=== PATIENT | male | born 1930 | race African-American/Black ===

== ENCOUNTER 2016-07-23 22:09 | Emergency (ER) | payer MEDICARE, MEDICAID ==
[2016-07-24 02:30] LABS: ABSOLUTE EOSINOPHILS # (AUTO) 0.1 10^3/uL (0.0-0.6); ABSOLUTE LYMPHOCYTES (AUTO) 0.8 10^3/uL (0.5-4.7); ABSOLUTE MONOCYTES (AUTO) 0.4 10^3/uL (0.1-1.4); ABSOLUTE NEUT (AUTO) 4.3 10^3/uL (1.7-8.2); BASOPHILS % (AUTO) 0.4 % (0-2); EOSINOPHILS % (AUTO) 1.5 % (0-6); HEMATOCRIT 37.8 % (37.9-51.0); HEMOGLOBIN 12.4 g/dL (13.5-17.0); HGB HCT DIFFERENCE -0.6; LYMPHOCYTES % (AUTO) 14.5 % (13-45); MEAN CORPUSCULAR HGB CONC 32.8 g/dL (32.0-36.0); MEAN CORPUSCULAR VOLUME 85 fl (80-97); MONOCYTES % (AUTO) 7.6 % (3-13); RED BLOOD COUNT 4.43 10^6/uL (4.35-5.55); RED CELL DISTRIBUTION WIDTH 17.1 % (11.5-14.0); WHITE BLOOD COUNT 5.7 10^3/uL (4.0-10.5)
[2016-07-24 02:31] LABS: ALANINE AMINOTRANSFERASE 19 U/L (21-72); ALBUMIN 4.1 g/dL (3.5-5.0); ALKALINE PHOSPHATASE 127 U/L (38-126); ANION GAP 13 (5-19); ASPARTATE AMINO TRANSFERASE 25 U/L (17-59); BILIRUBIN,DIRECT 0.5 mg/dL (0.0-0.4); BILIRUBIN,TOTAL 0.7 mg/dL (0.2-1.3); BLOOD UREA NITROGEN 20 mg/dL (7-20); CALCIUM 9.6 mg/dL (8.4-10.2); CARBON DIOXIDE 30 mmol/L (22-30); CHLORIDE 102 mmol/L (98-107); CREATINE KINASE 102 U/L (55-170); CREATININE RESULT 1.25 mg/dL (0.52-1.25); GLUCOSE 96 mg/dL (75-110); MAGNESIUM 2.4 mg/dL (1.6-2.3); POTASSIUM 4.4 mmol/L (3.6-5.0); SODIUM 144.9 mmol/L (137-145); TOTAL PROTEIN 7.9 g/dL (6.3-8.2)
[2016-07-24 02:33] LABS: PROTHROMBIN TIME 14.5 SEC (11.4-15.4)
[2016-07-24 02:34] LABS: PARTIAL THROMBOPLASTIN TIME 34.5 SEC (23.5-35.8)
[2016-07-24 02:36] LABS: ALCOHOL < 10 mg/dL (NONE DETECTED)
[2016-07-24 02:42] LABS: CREATINE KINASE MB 1.96 ng/mL (<4.55); TROPONIN I 0.013 ng/mL
--- NOTE | 2016-07-24 02:44 | ER Document Report ---
ED General <ALBIN STAPLETON - Last Filed: 07/24/16 09:44> - General Information source: Patient, Emergency Med Personnel Cannot obtain history due to: Dementia TRAVEL OUTSIDE OF THE [place]. IN LAST 30 DAYS: No <CRISTEL CARVALHO - Last Filed: 07/24/16 14:30> - General Chief Complaint: Altered Mental Status Stated Complaint: NO COMPLAINTS Notes: This is an 85-year-old male with a history of dementia who reportedly does still live alone and he was brought by EMS tonight after he was found wandering in his neighbor's yard. Patient has no specific complaints tonight, but is a very poor historian, confused to date, and difficult to understand as he mumbles all his words. (CRISTEL CARVALHO) - Related Data Allergies/Adverse Reactions: No Known Allergies Allergy (Verified 03/02/16 11:34) Past Medical History - Social History Smoking Status: Current Every Day Smoker Family History: None - Past Medical History Cardiac Medical History: Reports: Hx Hypertension Neurological Medical History: Reports: Hx Seizures Renal/ Medical History: Denies: Hx Peritoneal Dialysis Musculoskeltal Medical History: Reports Hx Arthritis Psychiatric Medical History: Reports: Hx Dementia - Immunizations Immunizations up to date: Yes Hx Diphtheria, Pertussis, Tetanus Vaccination: Yes <CRISTEL CARVALHO - Last Filed: 07/24/16 14:30> Review of Systems - Review of Systems -: Yes ROS unobtainable due to patient's medical condition - secondary to dementia <CRISTEL CARVALHO - Last Filed: 07/24/16 14:30> Physical Exam <ALBIN STAPLETON - Last Filed: 07/24/16 09:44> <CRISTEL CARVALHO - Last Filed: 07/24/16 14:30> - Vital signs Vitals: Temp Pulse BP Pulse Ox 97.4 F 67 122/76 95 07/23/16 22:24 07/23/16 22:24 07/23/16 22:24 07/23/16 22:24 - Notes Notes: PHYSICAL EXAMINATION: GENERAL: frail elderly male, disheveled, smells of urine. Pleasant and conversant (mumbles) and in no acute distress, confused. HEAD: Atraumatic, normocephalic. EYES: Pupils equal round and reactive to light, extraocular movements intact, sclera anicteric, conjunctiva are normal. ENT: nares patent, oropharynx clear without exudates. Moist mucous membranes. NECK: Normal range of motion, supple without lymphadenopathy LUNGS: Breath sounds clear to auscultation bilaterally and equal. No wheezes rales or rhonchi. HEART: Regular rate and rhythm without murmurs ABDOMEN: Soft, nontender, normoactive bowel sounds. No guarding, no rebound. No masses appreciated. EXTREMITIES: Normal range of motion NEUROLOGICAL: Alert to person. Cranial nerves grossly intact. No gross focal motor or sensory deficits appreciated PSYCH: Normal mood, normal affect. SKIN: Warm, Dry, normal turgor, no rashes or lesions noted. (CRISTEL CARVALHO) Course - Laboratory Result Diagrams: 07/24/16 01:05 07/24/16 01:05 <ALBIN STAPLETON - Last Filed: 07/24/16 09:44> - Laboratory Result Diagrams: 07/24/16 01:05 07/24/16 01:05 - Diagnostic Test Radiology reviewed: Reports reviewed - CT head: no acute changes CXR: no acute cardiopulmonary process <CRISTEL CARVALHO - Last Filed: 07/24/16 14:30> - Re-evaluation Re-evalutation: 07/24/16 06:10 I was able to contact the emergency contacts for this patient, his sister Odalis Malik [phone]. She confirms that she is his medical POA and that he lives with his stepson. She will come to the ER to provide further information/ assistance roxana. Pt has become increasingly more confused and somewhat agitated. Will medicate with Ativan. director field services consult has been placed, and I am awaiting family arrival to discuss discharge needs/plan, as patient will be unable to go home by himself in this condition. (CRISTEL CARVALHO) - Vital Signs Vital signs: Temp Pulse Resp BP Pulse Ox 97.9 F 67 23 H 193/83 H 100 07/24/16 11:24 07/23/16 22:24 07/24/16 11:01 07/24/16 11:01 07/24/16 11:01 - Laboratory Laboratory results interpreted by me: 07/24/16 07/24/16 07/24/16 01:05 01:05 08:35 Hgb 12.4 L Hct 37.8 L RDW 17.1 H Plt Count 145 L Est GFR (Non-Af Amer) 55 L Magnesium 2.4 H Direct Bilirubin 0.5 H ALT 19 L Alkaline Phosphatase 127 H Urine Blood MODERATE H Discharge <ALBIN STAPLETON - Last Filed: 07/24/16 09:44> <CRISTEL CARVALHO - Last Filed: 07/24/16 14:30> - Discharge Clinical Impression: Dementia Qualifiers: Dementia type: unspecified type Dementia behavioral disturbance: with behavioral disturbance Qualified Code(s): F03.91 - Unspecified dementia with behavioral disturbance Condition: Stable Disposition: HOME, SELF-CARE Additional Instructions: Follow-up with your doctor to discuss long-term care options. RETURN TO THE EMERGENCY ROOM IF ANY NEW OR WORSENING SYMPTOMS. Referrals: VAISHALI TRINH MD [Primary Care Provider] - Follow up in 3-5 days
[2016-07-24] MEDS ORDERED: LORAZEPAM INJ 2 MG/1 ML VIAL IV ONE (06:08)
--- NOTE | 2016-07-24 08:07 | EKG REPORT ---
SEVERITY:- ABNORMAL ECG - ACCELERATED JUNCTIONAL ESCAPE RHYTHM RIGHT BUNDLE BRANCH BLOCK LVH BY VOLTAGE : Confirmed by: Jerrell Blanco MD 24-Jul-2016 08:07:27
[2016-07-24 09:15] LABS: APPEARANCE,URINE CLEAR; BILIRUBIN,URINE NEGATIVE (NEGATIVE); GLUCOSE, URINE NEGATIVE (NEGATIVE); KETONES,URINE NEGATIVE (NEGATIVE); LEUKOCYTE ESTERASE,URINE NEGATIVE (NEGATIVE); NITRITE,URINE NEGATIVE (NEGATIVE); PROTEIN,URINE NEGATIVE (NEGATIVE); URINE SPECIFIC GRAVITY 1.005; UROBILINOGEN,URINE NEGATIVE mg/dL (<2.0)
[2016-07-24 11:23] VITALS: BP 193/83
== END 2016-07-24 11:24 | disposition home or self-care (01) ==
LOC: ER 22:09
DX: F03.91 Unspecified dementia, unspecified severity, with behavioral disturbance (principal); R41.82 Altered mental status, unspecified; F17.200 Nicotine dependence, unspecified, uncomplicated; I10 Essential (primary) hypertension
CPT/HCPCS: 93005; 99285; 96374; 36415; 82553; 80307; 82550; 83735; 85025; 85610; 85730; 80053; 81001; 84484; 71010; 70450; 93010; J2060

== ENCOUNTER 2016-11-24 12:41 | Emergency (ER) | payer MEDICARE, MEDICAID ==
--- NOTE | 2016-11-24 12:56 | ER Document Report ---
ED GI/ - General Stated Complaint: ABDOMINAL PAIN Time Seen by Provider: 11/24/16 12:55 Mode of Arrival: Medic Information source: Patient, Emergency Med Personnel TRAVEL OUTSIDE OF THE [place] IN LAST 30 DAYS: No - HPI Patient complains to provider of: Abdominal pain Onset: Yesterday Timing/Duration: Gradual Quality of pain: Dull Severity at maximum: Moderate Severity in ED: Mild, Moderate Context: denies: Bad food, Lifting, Recent trauma Location: Chest pain - LEFT PECTORAL, Epigastric Associated symptoms: Constipation - NO BM IN 2 DAYS, Nausea. denies: Chills, Fever, Hurts to breath, Shortness of breath Exacerbated by: Food Relieved by: Denies Similar symptoms previously: No Recently seen / treated by doctor: No - Related Data Allergies/Adverse Reactions: No Known Allergies Allergy (Verified 03/02/16 11:34) Past Medical History - General Information source: Patient, Relative - Social History Smoking Status: Unknown if Ever Smoked Frequency of alcohol use: None Drug Abuse: None Family History: None Patient has suicidal ideation: No Patient has homicidal ideation: No - Past Medical History Cardiac Medical History: Reports: Hx Hypertension Pulmonary Medical History: Reports: None Neurological Medical History: Reports: Hx Seizures Renal/ Medical History: Reports: None. Denies: Hx Peritoneal Dialysis Malignancy Medical History: Reports None GI Medical History: Reports: None Musculoskeltal Medical History: Reports Hx Arthritis Psychiatric Medical History: Reports: Hx Dementia Surgical Hx: Negative - Immunizations Immunizations up to date: Yes Hx Diphtheria, Pertussis, Tetanus Vaccination: Yes Review of Systems - Review of Systems Constitutional: No symptoms reported. denies: Chills, Fever EENT: No symptoms reported Cardiovascular: No symptoms reported Respiratory: No symptoms reported Gastrointestinal: See HPI Genitourinary: No symptoms reported Musculoskeletal: No symptoms reported Skin: No symptoms reported Neurological/Psychological: No symptoms reported Physical Exam - Vital signs Vitals: Resp 24 H 11/24/16 12:58 Interpretation: Hypertensive, Tachypneic. No: Tachycardic, Febrile - General General appearance: Appears well, Alert In distress: None - HEENT Head: Normocephalic Eyes: Normal Conjunctiva: Normal Ears: Normal Nasal: Normal Mouth/Lips: Normal Mucous membranes: Normal Pharynx: Normal Neck: Normal - Respiratory Respiratory status: No respiratory distress Breath sounds: Normal - Cardiovascular Rhythm: Regular Heart sounds: Normal auscultation Murmur: No - Abdominal Inspection: Normal Distension: No distension Bowel sounds: Normal Tenderness: Tender - SLIGHT, ALL QUADRANTS - Rectal Tenderness: No Stool: Other - EMPTY RECTAL VAULT - Back Back: Normal - Extremities General upper extremity: Normal inspection General lower extremity: Normal inspection - Neurological Neuro grossly intact: Yes Cognition: Normal Orientation: AAOx4 - Psychological Associated symptoms: Normal affect, Normal mood - Skin Skin Temperature: Warm Skin Moisture: Dry Skin Color: Normal Skin Turgor: Elastic Course - Vital Signs Vital signs: Temp Pulse Resp BP Pulse Ox 97.4 F 80 18 184/92 H 98 11/24/16 13:28 11/24/16 15:05 11/24/16 14:48 11/24/16 14:48 11/24/16 14:47 - Laboratory Result Diagrams: 11/24/16 13:14 11/24/16 13:14 Laboratory results interpreted by me: 11/24/16 11/24/16 11/24/16 13:14 13:14 15:54 Hgb 12.5 L Hct 37.7 L RDW 15.7 H Plt Count 129 L BUN 25 H Est GFR (Non-Af Amer) 59 L ALT 18 L Lipase 18.5 L Urine Protein 100 H Urine Blood LARGE H - EKG Interpretation by Me EKG shows normal: [place], Intervals, ST-T Waves. abnormal: Sinus rhythm, QRS Complexes Rate: Normal Rhythm: A.Fib Holl[place]/QRS: RBBB When compared to previous EKG there are: Changes noted Discharge - Discharge Clinical Impression: Abdominal pain Qualifiers: Abdominal location: generalized Qualified Code(s): R10.84 - Generalized abdominal pain Condition: Stable Disposition: HOME, SELF-CARE Instructions: Abdominal Pain ([facility]), Laxative ([facility]) Additional Instructions: DRINK PLENTY OF FLUIDS. TALE MIRALAX DIRECTED, TWICE A DAY UNTIL REGULAR BOWEL MOVEMENTS BEGIN, THEN NEEDED TO KEEP BOWELS REGULAR. CONTINUE ALL OTHER MEDS USUAL. FOLLOW UP WITH YOUR PRIMARY CARE PROVIDER NEEDED. Prescriptions: Polyethylene Glycol 3350 [Miralax] 17 gm PO BIDP PRN #[id number] PRN Reason: FOR CONSTIPATION Referrals: VAISHALI TRINH MD [Primary Care Provider] - Follow up as needed
[2016-11-24 13:41] LABS: ABSOLUTE EOSINOPHILS # (AUTO) 0.1 10^3/uL (0.0-0.6); ABSOLUTE LYMPHOCYTES (AUTO) 0.9 10^3/uL (0.5-4.7); ABSOLUTE MONOCYTES (AUTO) 0.3 10^3/uL (0.1-1.4); ABSOLUTE NEUT (AUTO) 3.4 10^3/uL (1.7-8.2); BASOPHILS % (AUTO) 0.5 % (0-2); EOSINOPHILS % (AUTO) 2.6 % (0-6); HEMATOCRIT 37.7 % (37.9-51.0); HEMOGLOBIN 12.5 g/dL (13.5-17.0); HGB HCT DIFFERENCE -0.2; LYMPHOCYTES % (AUTO) 18.6 % (13-45); MEAN CORPUSCULAR HEMOGLOBIN 28.2 pg (27.0-33.4); MEAN CORPUSCULAR VOLUME 85 fl (80-97); RED BLOOD COUNT 4.42 10^6/uL (4.35-5.55); RED CELL DISTRIBUTION WIDTH 15.7 % (11.5-14.0); SEGMENTED NEUTROPHILS % (AUTO) 71.3 % (42-78); WHITE BLOOD COUNT 4.7 10^3/uL (4.0-10.5)
[2016-11-24 13:51] LABS: ALANINE AMINOTRANSFERASE 18 U/L (21-72); ALBUMIN 3.9 g/dL (3.5-5.0); ALKALINE PHOSPHATASE 105 U/L (38-126); ANION GAP 10 (5-19); ASPARTATE AMINO TRANSFERASE 23 U/L (17-59); BILIRUBIN,DIRECT 0.4 mg/dL (0.0-0.4); BILIRUBIN,TOTAL 0.4 mg/dL (0.2-1.3); BLOOD UREA NITROGEN 25 mg/dL (7-20); CALCIUM 9.1 mg/dL (8.4-10.2); CARBON DIOXIDE 29 mmol/L (22-30); CHLORIDE 104 mmol/L (98-107); CREATINE KINASE 66 U/L (55-170); CREATININE RESULT 1.18 mg/dL (0.52-1.25); GLUCOSE 88 mg/dL (75-110); LIPASE 18.5 U/L (23-300); MAGNESIUM 2.3 mg/dL (1.6-2.3); POTASSIUM 4.2 mmol/L (3.6-5.0); TOTAL PROTEIN 7.3 g/dL (6.3-8.2)
[2016-11-24 14:01] LABS: CREATINE KINASE MB 1.68 ng/mL (<4.55)
[2016-11-24 14:02] LABS: TROPONIN I < 0.012 ng/mL
--- NOTE | 2016-11-24 14:19 | RADIOLOGY REPORT (SQ) ---
EXAM DESCRIPTION: ACUTE ABDOMEN SERIES COMPLETED DATE/TIME: 11/24/2016 2:00 pm REASON FOR STUDY: EPIGASTRIC PAIN COMPARISON: 05/22/2015. NUMBER OF VIEWS: Three views. TECHNIQUE: Frontal chest, supine abdomen and upright/decubitus abdomen radiographic images acquired. LIMITATIONS: None. FINDINGS: CHEST: Probable chronic interstitial scarring. No focal infiltrate. FREE AIR: None. No abnormal gas collections. BOWEL GAS PATTERN: Nonobstructive pattern. No dilated loops or air fluid levels. CALCIFICATIONS: No suspicious calcifications. Extensive vascular calcifications. HARDWARE: None in the abdomen. SOFT TISSUES: No gross mass or suggestion of organomegaly. BONES: No acute fracture. Degenerative changes in the spine and hips. No worrisome bone lesions. OTHER: No other significant finding. IMPRESSION: NO RADIOGRAPHIC EVIDENCE FOR ACUTE ABDOMINAL DISEASE. CHRONIC FINDINGS DESCRIBED KIM MILLER. TECHNICAL DOCUMENTATION: JOB ID: [id number] [employer]- All Rights Reserved
[2016-11-24] MEDS ORDERED: NA PHOS,M-B/NA PHOS,DI-BA (ADULT) 133 ML ENEMA PR ONE (16:21)
[2016-11-24 16:24] LABS: APPEARANCE,URINE CLEAR; BILIRUBIN,URINE NEGATIVE (NEGATIVE); GLUCOSE, URINE NEGATIVE (NEGATIVE); KETONES,URINE NEGATIVE (NEGATIVE); LEUKOCYTE ESTERASE,URINE NEGATIVE (NEGATIVE); NITRITE,URINE NEGATIVE (NEGATIVE); PROTEIN,URINE 100 mg/dL (NEGATIVE); URINE SPECIFIC GRAVITY 1.011; UROBILINOGEN,URINE NEGATIVE mg/dL (<2.0)
[2016-11-24] MEDS ORDERED: POLYETHYLENE GLYCOL 3350 POWDER 17 GM/1 PACKET PO ONE (17:12)
[2016-11-24 18:32] VITALS: BP 147/89
--- NOTE | 2016-11-24 21:56 | EKG REPORT ---
SEVERITY:- ABNORMAL ECG - ATRIAL FIBRILLATION RIGHT BUNDLE BRANCH BLOCK : Confirmed by: Patrick Rodrigues 24-Nov-2016 21:55:16
== END 2016-11-24 18:31 | disposition home or self-care (01) ==
LOC: ER 12:41
DX: K59.00 Constipation, unspecified (principal); R10.84 Generalized abdominal pain; R11.0 Nausea; I48.91 Unspecified atrial fibrillation; I45.10 Unspecified right bundle-branch block; I10 Essential (primary) hypertension; R06.82 Tachypnea, not elsewhere classified
CPT/HCPCS: 93005; 99285; 36415; 82553; 82550; 83690; 83735; 85025; 80053; 81001; 84484; 74022; 93010; J3490; A9270

== ENCOUNTER 2016-12-08 21:01 | Emergency (ER) | payer MEDICARE, MEDICAID ==
--- NOTE | 2016-12-08 23:13 | ER Document Report ---
ED General - General Chief Complaint: Fall Stated Complaint: FALL/ NO COMPLAINT Time Seen by Provider: 12/08/16 21:56 Cannot obtain history due to: Dementia Notes: Patient is an 86-year-old male who presents by EMS after being found on the ground by his son. Patient apparently lives with his son but was on the ground for an unknown period of time. Patient is profoundly demented and unable to provide any additional meaningful history. He does deny any pain or additional complaints. TRAVEL OUTSIDE OF THE [place] IN LAST 30 DAYS: No - Related Data Allergies/Adverse Reactions: No Known Allergies Allergy (Verified 03/02/16 11:34) Past Medical History - General Information source: Patient, Emergency Med Personnel Cannot obtain history due to: Dementia - Social History Smoking Status: Unknown if Ever Smoked Lives with: Family Family History: Reviewed & Not Pertinent Patient has suicidal ideation: No Patient has homicidal ideation: No - Past Medical History Cardiac Medical History: Reports: Hx Hypertension Neurological Medical History: Reports: Hx Seizures Renal/ Medical History: Denies: Hx Peritoneal Dialysis Musculoskeltal Medical History: Reports Hx Arthritis Psychiatric Medical History: Reports: Hx Dementia - Immunizations Immunizations up to date: Yes Hx Diphtheria, Pertussis, Tetanus Vaccination: Yes Review of Systems - Review of Systems Notes: Constitutional: Negative for fever. HENT: Negative for sore throat. Eyes: Negative for visual changes. Cardiovascular: Negative for chest pain. Respiratory: Negative for shortness of breath. Gastrointestinal: Negative for abdominal pain, vomiting or diarrhea. Genitourinary: Negative for dysuria. Musculoskeletal: Negative for back pain. Skin: Negative for rash. Neurological: Negative for headaches, weakness or numbness. 10 point ROS negative except as marked above and in HPI. Physical Exam - Vital signs Vitals: Temp Pulse Resp BP Pulse Ox 98.6 F 79 18 139/84 H 95 12/08/16 21:21 12/08/16 21:21 12/08/16 21:21 12/08/16 21:21 12/08/16 21:21 Interpretation: Normal Notes: PHYSICAL EXAMINATION: GENERAL: Frail, emaciated, but in no acute distress HEAD: Atraumatic, normocephalic. EYES: Pupils equal round and reactive to light, extraocular movements intact, sclera anicteric, conjunctiva are normal. ENT: nares patent, oropharynx clear without exudates. Moderately dry mucous membranes. NECK: Normal range of motion, supple without lymphadenopathy LUNGS: Breath sounds clear to auscultation bilaterally and equal. No wheezes rales or rhonchi. HEART: Regular rate and rhythm without murmurs ABDOMEN: Soft, nontender, normoactive bowel sounds. No guarding, no rebound. No masses appreciated. EXTREMITIES: Normal range of motion, no pitting or edema. No cyanosis. NEUROLOGICAL: No focal neurological deficits. Moves all extremities spontaneously and on command. PSYCH: Alert, oriented only to person SKIN: Warm, Dry, normal turgor, no rashes or lesions noted. Course - Re-evaluation Re-evalutation: 12/08/16 23:12 Patient is an elderly demented 86-year-old male who presents after apparently being found on the floor. He was therefore an unknown period of time. He denies any complaints to me. He is profoundly confused, believes it is 1942, unable to describe any current events. No family at the bedside. He has no evidence of trauma on exam. No pain in the hips, no evidence of any extremity injury. He has no evidence of trauma over the head or neck. Breath sounds clear bilaterally. No abdominal tenderness. No focal weakness or numbness. He does appear somewhat dehydrated. Will obtain basic laboratories to evaluate for acute rhabdomyolysis as the patient was on the ground for an unknown period of time. If this is unremarkable plan for discharge home. 12/09/16 00:32 Laboratories unremarkable. Patient remains a some somatic. Continues to deny any complaints. Will discharge with return precautions and follow-up recommendations. - Vital Signs Vital signs: Temp Pulse Resp BP Pulse Ox 98.6 F 79 18 139/84 H 95 12/08/16 21:21 12/08/16 21:21 12/08/16 21:21 12/08/16 21:21 12/08/16 21:21 - Laboratory Result Diagrams: 12/08/16 23:45 Laboratory results interpreted by me: 12/08/16 23:45 Potassium 5.4 H BUN 29 H Creatinine 1.33 H Est GFR (Non-Af Amer) 51 L Creatine Kinase 54 L Discharge - Discharge Clinical Impression: Dementia Qualifiers: Dementia type: unspecified type Dementia behavioral disturbance: without behavioral disturbance Qualified Code(s): F03.90 - Unspecified dementia without behavioral disturbance Fall Qualifiers: Encounter type: initial encounter Qualified Code(s): W19.XXXA - Unspecified fall, initial encounter Condition: Stable Disposition: HOME, SELF-CARE Additional Instructions: Please return to the emergency room immediately if you experience any concerning symptoms including high fevers, severe headache, chest pain, difficulty breathing, abdominal pain, slurred speech, numbness or weakness in your arms or legs, or any other symptom that concerns you. Referrals: VAISHALI TRINH MD [Primary Care Provider] - Follow up as needed
[2016-12-09 00:15] LABS: ANION GAP 5 (5-19); BLOOD UREA NITROGEN 29 mg/dL (7-20); CALCIUM 9.1 mg/dL (8.4-10.2); CARBON DIOXIDE 30 mmol/L (22-30); CHLORIDE 106 mmol/L (98-107); CREATINE KINASE 54 U/L (55-170); CREATININE RESULT 1.33 mg/dL (0.52-1.25); GLUCOSE 101 mg/dL (75-110); POTASSIUM 5.4 mmol/L (3.6-5.0); SODIUM 141.4 mmol/L (137-145)
--- NOTE | 2016-12-09 11:59 | RADIOLOGY REPORT (SQ) ---
EXAM DESCRIPTION: CHEST PA/LAT COMPLETED DATE/TIME: 12/09/2016 11:51 am REASON FOR STUDY: asymptomatic , hypoxemia COMPARISON: 02/23/2016. EXAM PARAMETERS: NUMBER OF VIEWS: two views TECHNIQUE: Digital Frontal and Lateral radiographic views of the chest acquired. RADIATION DOSE: NA LIMITATIONS: none FINDINGS: LUNGS AND PLEURA: Chronic interstitial changes. No focal infiltrates, masses or pneumotho rax. No pleural effusion. MEDIASTINUM AND HILAR STRUCTURES: No masses or contour abnormalities. HEART AND VASCULAR STRUCTURES: Heart normal size. No evidence for failure. Ectatic aorta. BONES: No acute findings. HARDWARE: None in the chest. OTHER: No other significant finding. IMPRESSION: STABLE CHRONIC CHANGES. NO ACUTE RADIOGRAPHIC FINDING IN THE CHEST. TECHNICAL DOCUMENTATION: JOB ID: [id number] [employer]- All Rights Reserved
[2016-12-09 12:21] VITALS: BP 156/75
== END 2016-12-09 11:45 | disposition home or self-care (01) ==
LOC: ER 21:01
DX: F03.90 Unspecified dementia, unspecified severity, without behavioral disturbance, psychotic disturbance, mood disturbance, and anxiety (principal); W19.XXXA Unspecified fall, initial encounter
CPT/HCPCS: 36415; 71020; 80048; 82550; 99285

== ENCOUNTER 2016-12-24 04:47 | Emergency (ER) | payer MEDICARE, MEDICAID ==
--- NOTE | 2016-12-24 05:02 | ER Document Report ---
ED Fall - General TRAVEL OUTSIDE OF THE [place] IN LAST 30 DAYS: No <DENISE ROGERS - Last Filed: 12/24/16 07:18> <JIGNESH TORRES - Last Filed: 12/24/16 09:24> <CELE COLMENARES - Last Filed: 12/24/16 10:20> - General Stated Complaint: FALL, RIGHT HIP PAIN Time Seen by Provider: 12/24/16 04:49 Notes: Patient is a 86-year-old male presents emergency department via EMS after a fall in his home. Per EMS patient lives with his stepson who is uninsured when he fell but he found him laying on the ground on his side of the house. Patient denies any loss of consciousness or head injury. States he slipped out of his walker. Admits to right hip pain. EMS reports internal rotation and like shortening of the right lower extremity. Distal pulses are present. Otherwise patient has a history of hypertension. (DENISE ROGERS) - Related data Allergies/Adverse Reactions: No Known Allergies Allergy (Verified 12/24/16 09:00) Past Medical History - Social History Family History: Reviewed & Not Pertinent - Past Medical History Cardiac Medical History: Reports: Hx Hypertension Neurological Medical History: Reports: Hx Seizures Renal/ Medical History: Denies: Hx Peritoneal Dialysis Musculoskeltal Medical History: Reports Hx Arthritis Psychiatric Medical History: Reports: Hx Dementia - Immunizations Immunizations up to date: Yes Hx Diphtheria, Pertussis, Tetanus Vaccination: Yes <DENISE ROGERS - Last Filed: 12/24/16 07:18> - Social History Smoking Status: Never Smoker Cigarette use (# per day): No Chew tobacco use (# tins/day): No Smoking Education Provided: No <CELE COLMENARES - Last Filed: 12/24/16 10:20> Review of Systems - Review of Systems Constitutional: No symptoms reported Musculoskeletal: See HPI Neurological/Psychological: No symptoms reported -: Yes All other systems reviewed and negative <DENISE ROGERS - Last Filed: 12/24/16 07:18> Physical Exam <DENISE ROGERS - Last Filed: 12/24/16 07:18> <JIGNESH TORRES - Last Filed: 12/24/16 09:24> <CELE COLMENARES - Last Filed: 12/24/16 10:20> - Vital signs Vitals: Resp 17 12/24/16 05:01 - Notes Notes: PHYSICAL EXAMINATION: GENERAL: Well-appearing, well-nourished and in no acute distress. Right lower extremity shortened with internal GCS 15 HEAD: Atraumatic, normocephalic. EYES: Pupils equal round and reactive to light, extraocular movements intact, sclera anicteric, conjunctiva are normal. ENT: Nares patent, oropharynx clear without exudates. Moist mucous membranes. No hemanotympanum . No blood in nares. No dental fracture NECK: Normal range of motion, supple without lymphadenopathy. Trachea midline LUNGS: Breath sounds clear to auscultation bilaterally and equal. No wheezes rales or rhonchi. HEART: Regular rate and rhythm without murmurs. Pulses intact all throughout. ABDOMEN: Soft, nontender, nondistended abdomen. No guarding, no rebound. No masses appreciated. Musculoskeletal: Rotation with swelling of the right groin and tenderness to palpation of the right hip and pelvis, no pitting or edema. No cyanosis. Hip non tender, stable. NEUROLOGICAL: Cranial nerves grossly intact. Normal speech, normal gait. Normal sensory, motor, and reflex exams. PSYCH: Normal mood, normal affect. SKIN: Warm, No active bleeding U/S fast exam notes no obvious free fluid but this is a nondiagnostic evaluation (DENISE ROGERS) Course - Laboratory Result Diagrams: 12/24/16 06:26 12/24/16 06:26 <DENISE ROGERS - Last Filed: 12/24/16 07:18> - Laboratory Result Diagrams: 12/24/16 06:26 12/24/16 06:26 <JIGNESH TORRES - Last Filed: 12/24/16 09:24> - Laboratory Result Diagrams: 12/24/16 06:26 12/24/16 06:26 <CELE COLMENARES - Last Filed: 12/24/16 10:20> - Re-evaluation Re-evalutation: 12/24/16 04:45 Patient is an 86-year-old male hemodynamic stable, no acute distress and afebrile. Presentation is concerning for a right hip fracture. 12/24/16 06:00 No evidence of intracranial hemorrhage or fracture noted on CT of the head. No evidence of cervical fracture. Evidence of a right intertrochanteric fracture of the right hip. Otherwise mild anemia noted not requiring transfusion at this time. Evidence of chronic kidney disease that is stable with previous evaluation at the beginning of November. No evidence of urinary tract infection. 12/24/16 07:19 Patient has been signed out to day physician psychiatric technician assistant Jignesh Torres who will continue care of this patient. I have also consulted supervising physician Dr. Cele Colmenares regarding the care of this patient. Patient to either be admitted but we do not have Ortho continuity clerk today. Patient has been kept n.p.o. ( DENISE ROGERS) 12/24/16 08:28 Called [facility] around [address] Muñiz is the provider who is to call me back Just spoke to Quincy, darien-son, and notified him of plan to transfer. CXR shows ?infiltrate vs contusion. We will start him on Levaquin 750mg IV and BC's ordered as precautionary. 12/24/16 09:10 Called [facility] again as I have not heard from Dr. Muñiz 12/24/16 09:[address] Muñiz who accepted case. (JIGNESH TORRES) 12/24/16 10:20 pt reevaluated, stable awaitng transfer (CELE COLMENARES) - Vital Signs Vital signs: Temp Pulse Resp BP Pulse Ox 19 135/87 H 98 12/24/16 08:01 12/24/16 08:01 12/24/16 08:00 - Laboratory Laboratory results interpreted by me: 12/24/16 12/24/16 12/24/16 06:26 06:26 06:26 RBC 3.10 L Hgb 8.9 L Hct 26.9 L RDW 16.9 H Plt Count 106 L Seg Neutrophils % 88.1 H Lymphocytes % 5.9 L Absolute Neutrophils 9.0 H PT 17.4 H APTT 36.2 H Sodium 145.6 H Potassium 5.1 H Chloride 110 H BUN 34 H Creatinine 1.32 H Est GFR (Non-Af Amer) 51 L Glucose 156 H Urine Protein Urine Ascorbic Acid 12/24/16 06:42 RBC Hgb Hct RDW Plt Count Seg Neutrophils % Lymphocytes % Absolute Neutrophils PT APTT Sodium Potassium Chloride BUN Creatinine Est GFR (Non-Af Amer) Glucose Urine Protein 100 H Urine Ascorbic Acid 40 H Discharge <DENISE ROGERS - Last Filed: 12/24/16 07:18> <JIGNESH TORRES - Last Filed: 12/24/16 09:24> <CELE COLMENARES - Last Filed: 12/24/16 10:20> - Discharge Clinical Impression: Fracture, intertrochanteric, right femur Qualifiers: Encounter type: initial encounter Fracture type: closed Fracture alignment: displaced Qualified Code(s): S72.141A - Displaced intertrochanteric fracture of right femur, initial encounter for closed fracture Condition: Stable Disposition: [facility]
--- NOTE | 2016-12-24 05:53 | RADIOLOGY REPORT (SQ) ---
EXAM DESCRIPTION: CT HEAD WITHOUT COMPLETED DATE/TIME: 12/24/2016 5:43 am REASON FOR STUDY: unwitnessed fall COMPARISON: CT head 07/24/2016, 05/04/2015 TECHNIQUE: Axial images acquired through the brain without intravenous contrast. Images reviewed wi th bone, brain and subdural windows. Images stored on PACS. All CT scanners at this facility use dose modulation, iterative reconstruction, and/or weight based d osing when appropriate to reduce radiation dose to as low as reasonably achievable (ALARA). [facility]: Dose Right [facility]: CareDose [facility]: Dose Right [facility]: Teradose 4D [facility]: [email or web address] RADIATION DOSE: Up-to-date CT equipment and radiation dose reduction techniques were employed. CTDIv ol: 64.6 mGy. DLP: 1163 mGy-cm.mGy. LIMITATIONS: There is motion artifact. FINDINGS: VENTRICLES: Prominent. CEREBRUM: No mass effect. No hemorrhage. No midline shift. Areas of low density in the white matte r most likely due to chronic micro-vascular ischemic change. No evidence for acute territorial infar ction. CEREBELLUM: No mass effect. No hemorrhage. No alteration of density. No evidence for acute infarct ion. EXTRAAXIAL SPACES: Age-related involutional change. No fluid collections. ORBITS AND GLOBE: Symmetrical contour of the globes. CALVARIUM: No depressed fracture. PARANASAL SINUSES: Air-fluid level. Small mucous retention cyst/polyp in the left maxillary sinus. SOFT TISSUES: No hematoma. IMPRESSION: CHRONIC CHANGES OF ATROPHY AND MICROVASCULAR ISCHEMIA. NO ACUTE INTRACRANIAL HEMORRHAGE OR DEPRESSED CALVARIAL FRACTURE. EVIDENCE OF ACUTE STROKE: NO. TECHNICAL DOCUMENTATION: JOB ID: [id number] [facility] Quality ID # [id number]: Final reports with documentation of one or more dose reduction techniques (e.g., Au tomated exposure control, adjustment of the mA and/or kV according to patient size, use of iterative reconstruction technique) 2010 [employer]- All Rights Reserved
--- NOTE | 2016-12-24 06:01 | RADIOLOGY REPORT (SQ) ---
EXAM DESCRIPTION: CT CERVICAL SPINE WITHOUT COMPLETED DATE/TIME: 12/24/2016 5:43 am REASON FOR STUDY: unwitnessed fall COMPARISON: CT head 05/04/2015, 11/02/2014 TECHNIQUE: Axial images acquired through the cervical spine without intravenous contrast. Images re viewed with lung, soft tissue and bone windows. Reconstructed coronal and sagittal MPR images review ed. Images stored on PACS. All CT scanners at this facility use dose modulation, iterative reconstruction, and/or weight based d osing when appropriate to reduce radiation dose to as low as reasonably achievable (ALARA). [facility]: Dose Right [facility]: CareDose [facility]: Dose Right [facility]: Teradose 4D [facility]: Smart [email or web address] RADIATION DOSE: Up-to-date CT equipment and radiation dose reduction techniques were employed. CTDIv ol: 19.8 mGy. DLP: 401 mGy-cm. mGy. LIMITATIONS: None. FINDINGS: ALIGNMENT: Mild anterolisthesis of C2 on C3. MINERALIZATION: Osteopenia. VERTEBRAL BODIES: No acute fractures or dislocation. DISCS: Multilevel disc space narrowing with osteophytes. FACETS, LATERAL MASSES, POSTERIOR ELEMENTS: Facet arthropathy. No fractures. No dislocation. HARDWARE: None in the spine. VISUALIZED RIBS: No fractures. LUNG APICES AND SOFT TISSUES: Emphysematous changes at the visualized lung apices. IMPRESSION: CHRONIC DEGENERATIVE CHANGES. NO ACUTE FRACTURE AT THE CERVICAL SPINE. EMPHYSEMA. TECHNICAL DOCUMENTATION: JOB ID: [id number] Quality ID # [id number]: Final reports with documentation of one or more dose reduction techniques (e.g., Au tomated exposure control, adjustment of the mA and/or kV according to patient size, use of iterative reconstruction technique) 2010 [employer]- All Rights Reserved
--- NOTE | 2016-12-24 06:24 | RADIOLOGY REPORT (SQ) ---
EXAM DESCRIPTION: CHEST PA/LAT COMPLETED DATE/TIME: 12/24/2016 6:12 am REASON FOR STUDY: unwitnessed fall COMPARISON: Chest x-ray 12/09/2016, 07/24/2016, 02/23/2016 EXAM PARAMETERS: NUMBER OF VIEWS: two views TECHNIQUE: Digital Frontal and Lateral radiographic views of the chest acquired. RADIATION DOSE: NA LIMITATIONS: none FINDINGS: LUNGS AND PLEURA: Airspace opacity in the left upper lobe. No pneumothorax or pleural eff usion. MEDIASTINUM AND HILAR STRUCTURES: Tortuous thoracic aorta. HEART AND VASCULAR STRUCTURES: Heart normal size. No evidence for failure. BONES: There is osteopenia. Multilevel degenerative changes with compression deformities within the thoracolumbar spine. HARDWARE: None in the chest. IMPRESSION: Airspace opacity in the left upper lobe, may represent pneumonia or pulmonary contusion given the history of trauma. Radiographic followup to resolution recommended to exclude underlying m ass. TECHNICAL DOCUMENTATION: JOB ID: [id number] [place]-[id number] 2010 [employer]- All Rights Reserved
--- NOTE | 2016-12-24 06:27 | RADIOLOGY REPORT (SQ) ---
EXAM DESCRIPTION: HIP RIGHT AP/LATERAL COMPLETED DATE/TIME: 12/24/2016 6:12 am REASON FOR STUDY: unwitnessed fall, right hip pain with internal rot COMPARISON: None. NUMBER OF VIEWS: Two views. TECHNIQUE: AP pelvis and additional cross-table view of the right hip. LIMITATIONS: None. FINDINGS: There is osteopenia. There is a displaced intertrochanteric fracture at the proximal righ t femur with varus angulation. The left hip joint is maintained. The bilateral iliac wings are part ially excluded from the [id number]. No obvious acute fracture at the visualized pelvis. The sacr um is obscured by overlying bowel wall. Degenerative changes in the visualized lower lumbar spine. Vascular calcifications are noted. IMPRESSION: Osteopenia. Displaced intertrochanteric fracture at the proximal right femur. TECHNICAL DOCUMENTATION: JOB ID: [id number] [place]-[id number] 2010 [employer]- All Rights Reserved
[2016-12-24] MEDS ORDERED: FENTANYL CITRATE INJ/PF 100 MCG/2 ML AMPUL IV ONE (06:29)
[2016-12-24 06:47] LABS: ABSOLUTE LYMPHOCYTES (AUTO) 0.6 10^3/uL (0.5-4.7); ABSOLUTE MONOCYTES (AUTO) 0.6 10^3/uL (0.1-1.4); BASOPHILS % (AUTO) 0.3 % (0-2); HEMATOCRIT 26.9 % (37.9-51.0); HEMOGLOBIN 8.9 g/dL (13.5-17.0); HGB HCT DIFFERENCE -0.2; LYMPHOCYTES % (AUTO) 5.9 % (13-45); MEAN CORPUSCULAR HEMOGLOBIN 28.6 pg (27.0-33.4); MEAN CORPUSCULAR VOLUME 87 fl (80-97); MONOCYTES % (AUTO) 5.7 % (3-13); RED CELL DISTRIBUTION WIDTH 16.9 % (11.5-14.0); SEGMENTED NEUTROPHILS % (AUTO) 88.1 % (42-78); WHITE BLOOD COUNT 10.3 10^3/uL (4.0-10.5)
[2016-12-24 06:53] LABS: PROTHROMBIN TIME 17.4 SEC (11.4-15.4)
[2016-12-24 06:54] LABS: PARTIAL THROMBOPLASTIN TIME 36.2 SEC (23.5-35.8)
[2016-12-24 07:00] LABS: APPEARANCE,URINE SLIGHTLY-CLOUDY; BILIRUBIN,URINE NEGATIVE (NEGATIVE); GLUCOSE, URINE NEGATIVE (NEGATIVE); KETONES,URINE NEGATIVE (NEGATIVE); LEUKOCYTE ESTERASE,URINE NEGATIVE (NEGATIVE); NITRITE,URINE NEGATIVE (NEGATIVE); PROTEIN,URINE 100 mg/dL (NEGATIVE); URINE SPECIFIC GRAVITY 1.019; UROBILINOGEN,URINE NEGATIVE mg/dL (<2.0)
[2016-12-24 07:04] LABS: ALANINE AMINOTRANSFERASE 25 U/L (21-72); ALBUMIN 3.5 g/dL (3.5-5.0); ALKALINE PHOSPHATASE 87 U/L (38-126); ANION GAP 13 (5-19); ASPARTATE AMINO TRANSFERASE 26 U/L (17-59); BILIRUBIN,DIRECT 0.3 mg/dL (0.0-0.4); BILIRUBIN,TOTAL 0.4 mg/dL (0.2-1.3); BLOOD UREA NITROGEN 34 mg/dL (7-20); CALCIUM 8.8 mg/dL (8.4-10.2); CARBON DIOXIDE 23 mmol/L (22-30); CHLORIDE 110 mmol/L (98-107); CREATINE KINASE 66 U/L (55-170); CREATININE RESULT 1.32 mg/dL (0.52-1.25); GLUCOSE 156 mg/dL (75-110); POTASSIUM 5.1 mmol/L (3.6-5.0); SODIUM 145.6 mmol/L (137-145); TOTAL PROTEIN 6.3 g/dL (6.3-8.2)
[2016-12-24] MEDS ORDERED: LEVOFLOXACIN 750 MG/D5W RTU 750 MG/150 ML RTUPB IV ONE (08:02)
[2016-12-24] MEDS ORDERED: NORMAL SALINE 1000 ML 1,000 ML IV ONE (08:02)
[2016-12-24 10:32] VITALS: BP 112/74
--- NOTE | 2016-12-24 12:59 | EKG REPORT ---
SEVERITY:- ABNORMAL ECG - ATRIAL FIBRILLATION INCOMPLETE RIGHT BUNDLE BRANCH BLOCK LOW VOLTAGE IN FRONTAL LEADS : Confirmed by: Patrick Rodrigues 24-Dec-2016 12:59:04
== END 2016-12-24 10:50 | disposition short-term general hospital (02) ==
LOC: ER 04:47
DX: S72.141A Displaced intertrochanteric fracture of right femur, initial encounter for closed fracture (principal); M25.551 Pain in right hip; W18.30XA Fall on same level, unspecified, initial encounter; I10 Essential (primary) hypertension; F03.90 Unspecified dementia, unspecified severity, without behavioral disturbance, psychotic disturbance, mood disturbance, and anxiety
CPT/HCPCS: 99285; 96375; 96365; 96366; 36415; 87040; 82550; 85025; 85610; 85730; 87077; 80053; 81001; 84484; 71020; 73502; 70450; 72125; 93005; 93010; J3010; J7030; J1956